=== PATIENT | female | born 2000 | race African-American/Black ===

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

== ENCOUNTER → 2021-01-19 | Outpatient (CLI) | payer OTHER | LOC: MC.RAD 10:00 | DX: N63.20 Unspecified lump in the left breast, unspecified quadrant (principal) ==

== ENCOUNTER 2021-03-26 16:04 | Emergency (ER) | payer OTHER ==
[~2021-03-26] VITALS: Ht 154.9 cm; Wt 63.6 kg
[2021-03-26 16:36] VITALS: TEMP 98.7
[2021-03-26 17:34] LABS: BASO % 0.5 % (0.0-2.0); EOS # 0.1 (0.0-0.7); EOS % 1.2 % (0-4.0); GRAN # 3.4 (1.4-6.5); GRAN % 52.9 % (42.2-75.2); HEMATOCRIT 39.5 % (35.0-45.0); HEMOGLOBIN 12.6 g/dl (12.0-15.0); LYMPH # 2.2 (1.2-3.4); LYMPH % 33.5 % (20.0-51.0); MEAN CELL VOLUME 81 fl (80.0-95.0); MEAN CORPUSCULAR HEMOGLOBIN 26 pg (26.0-32.0); MEAN CORPUSCULAR HGB CONC 32 g/dl (33.0-37.0); MEAN PLATELET VOLUME 8.9 fl (7.4-10.4); MONO # 0.8 (0.1-0.6); MONO % 11.6 % (1.7-9.3); PLATELET COUNT 243 K/mm3 (130-400); RED BLOOD COUNT 4.85 M/mm3 (4.10-5.30); REDCELL DISTRIBUTION WIDTH-CV 13.4 % (11.5-14.5)
[2021-03-26 17:45] LABS: COLLECTION METHOD CLEAN CATCH
[2021-03-26 17:54] LABS: MUCOUS Present /lpf; PH 5 (5-8); URINE APPEARANCE Hazy; URINE BACTERIA Rare /hpf; URINE BILIRUBIN Negative (NEGATIVE); URINE BLOOD 2+ (NEGATIVE); URINE COLOR Yellow; URINE GLUCOSE Negative (NEGATIVE); URINE KETONE Trace (NEGATIVE); URINE LEUKOCYTE ESTERASE Trace (NEGATIVE); URINE NITRATE Negative (NEGATIVE); URINE PROTEIN(semi-quant) 1+ (NEGATIVE)
[2021-03-26 19:26] VITALS: BP 114/65; PULSE 72
== END 2021-03-26 19:26 | disposition home or self-care (01) ==
LOC: COL.ER 16:04
PROVIDERS: Physician Assistant
DX: O23.521 Salpingo-oophoritis in pregnancy, first trimester (principal); Z3A.01 Less than 8 weeks gestation of pregnancy

== ENCOUNTER 2021-03-28 15:03 | Observation (INO) | payer OTHER ==
[~2021-03-28] VITALS: Ht 154.9 cm; Wt 63.6 kg
[2021-03-28] MEDS ORDERED: IBU600 MG PO (19:10)
[2021-03-28] MEDS ORDERED: ROXICODONE 55 MG/TAB PO (19:11)
[2021-03-28 19:45] VITALS: BP 118/43; PULSE 74; TEMP 97.9
--- NOTE | 2021-03-28 19:45 | NUR ---
Pt arrived to room 222 by bed accompanied by Filiberto RN, PACU nurse. Pt in stable condition, alert and oriented x 4, denies pain at this time. Lactated Ringers infusing to gravity in Left AC. 3 sites to abdomen covered by bandaids, clean, dry, and intact. Bed in low and locked position, call light within reach.
[2021-03-28 20:00] VITALS: BP 100/83; PULSE 75
[2021-03-28 20:15] VITALS: BP 108/74; PULSE 67
[2021-03-28 20:30] VITALS: BP 108/74; PULSE 67
[2021-03-28 21:00] VITALS: BP 111/65; PULSE 67
[2021-03-28 21:30] VITALS: BP 101/56; PULSE 70
--- NOTE | 2021-03-28 22:05 | NUR ---
PTS PAIN WELL CONTROLLED AND ABLE TO VOID. DENIES DIZZINESS OR NAUSEA. PT CHANGED INTO CLOTHES AND READY TO DISCHARGE HOME. DISCHARGE INSTRUCTIONS AND HOME PERCOCET PACK GIVEN TO PT. PT WHEELED OFF UNIT AND HOME WITH MOTHER. DENIES ANY QUESTIONS OR CONCERNS.
== END 2021-03-28 22:05 | disposition home or self-care (01) ==
LOC: COL.ER 15:03 → OB 19:46
PROVIDERS: ADMIT Obstetrics & Gynecology
DX: O00.90 Unspecified ectopic pregnancy without intrauterine pregnancy (principal); K21.9 Gastro-esophageal reflux disease without esophagitis; Z79.899 Other long term (current) drug therapy; Z20.822 Contact with and (suspected) exposure to COVID-19
CPT/HCPCS: G0378; J0330; J1100; J1885; J2405; J2704; J2710; J3010

== ENCOUNTER 2021-09-13 22:50 | Emergency (ER) | payer OTHER ==
[~2021-09-13] VITALS: Ht 154.9 cm; Wt 63.6 kg
[2021-09-13 23:01] VITALS: TEMP 100.4
[2021-09-13] MEDS ORDERED: MAGIC MOUTH PO (23:24)
[2021-09-13 23:38] VITALS: BP 118/85; PULSE 94
== END 2021-09-13 23:38 | disposition home or self-care (01) ==
LOC: COL.ER 22:50
DX: J02.0 Streptococcal pharyngitis (principal)